=== PATIENT | male | born 1965 | race Caucasian/White ===

== ENCOUNTER 2017-08-03 05:24 | Day surgery (SDC) | payer OTHER ==
[~2017-08-03] VITALS: Ht 185.4 cm; Wt 108.0 kg
--- NOTE | ~2017-08-03 | EKG ---
[address] [address] ELECTROCARDIOGRAM REPORT Name: CARLOS ROBIN Room #: 150-3 [facility]#: [id number] Admission: 08/03/17 Attend Phys: Gregorio Osullivan MD Discharge: Date of : 63 Report #: [id number] THIS REPORT FOR: //name// [facility] Test Date: 2017-08-03 Test Time: 06:39:02 Pat Name: CARLOS ROBIN Department: Room: 150 3 Gender: M Guide Visitor: RAMA : 1965 Requested By: Gregorio Osullivan Order Number: [id number] MD: Preston Bran Measurements Intervals [place] Rate: 55 P: 34 MA: 166 QRS: 0 QRSD: 109 T: -13 QT: 431 QTc: 413 Interpretive Statements Sinus bradycardia Voltage criteria for left ventricular hypertrophy No previous ECG available for comparison Electronically Signed On 08-03-2017 8:44:14 BICYCLE SERVICE TECHNICIAN by Preston Bran [email or web address] <ELECTRONICALLY SIGNED> By: Preston Bran MD, [facility] 08/03/17 0844 0639 0639 Preston Bran MD, FACC /EPI
--- NOTE | ~2017-08-03 | O ---
[facility] [place] [address] OPERATIVE REPORT Name: CARLOS ROBIN Room #: DEP [facility].#: [id number] Admission: 08/03/17 Attend Phys: Gregorio Osullivan MD Discharge: 08/03/17 Date of : 63 Report #: [id number] THIS REPORT FOR: //name// CC: FAM unknown Gregorio Osullivan DATE OF SERVICE: 08/03/2017 PREOPERATIVE DIAGNOSIS: Deviated nasal septum, turbinate hypertrophy, sleep apnea. POSTOPERATIVE DIAGNOSIS: Deviated nasal septum, turbinate hypertrophy, sleep apnea. PROCEDURE: Nasal septoplasty, submucous resection of inferior turbinates with outfracturing. SURGEON: Gregorio Osullivan MD ANESTHESIA: General, LMA. INDICATIONS: See H and P. FINDINGS: Severely deviated quadrangular cartilage bowed and deviated towards the patient's left side. There was a large spur involving the vomer, which was impacted against the left inferior turbinate. TECHNIQUE: After obtaining consent, he was brought to the operating suite, appropriate time out was performed. General LMA anesthesia was obtained. The bed was turned 90 degrees. Nose was prepped and draped in the usual sterile fashion, 8 mL of 1% Xylocaine, 1:100,000 epinephrine was injected on each side of the nasal septum. Later in the case, an additional mL was injected submucosally in each inferior turbinate. Care was made not to inject intravascularly. A right-sided hemitransfixion incision was performed with elevation of the mucosal flap on the left side exposing the entire length of the quadrangular cartilage in the anterior vomer and perpendicular plate on the left side. Due to substantial deviation, I harvested a large almost square piece of quadrangular cartilage leaving enough superiorly and caudally for tip support. The bony cartilaginous junction superiorly was disarticulated. I elevated mucosal flaps on both the right and left sides of the vomer and perpendicular plate. The spurring was taken care of in a piecemeal fashion using combination of Riki-Juanjo punches, scissors and Tamiko forceps. I then returned anteriorly where I continued deviation off the maxillary crest, which had a rather prominent deviation to the left and incorporated a small vomer spur. [address] [address] OPERATIVE REPORT Name: CARLOS ROBIN Room #: DEP [facility] M.R.#: [id number] Admission: 08/03/17 Attend Phys: Gregorio Osullivan MD Discharge: 08/03/17 Date of : 63 Report #: [id number] This was taken down with a combination of Riki-Juanjo scissors and Tamiko's. Upon removal, there was noted to be two rents in the mucosal flaps, one posterior inferiorly on the left and one anteriorly inferiorly on the right. These were not adjacent to each other. Having addressed the septal deviation, previously harvested cartilage that was found to be relatively straight was trimmed, morcellized and placed back between the septal folds. The hemitransfixion incision was closed with 4-0 chromic suture. Simple splints were designed and fashioned by myself, placed in each side of the septum and secured with 3-0 Prolene. Prior to securing these, I made sure the mucosal flaps were unfurled. Each inferior turbinate was medialized with a Gladstone elevator. The above local anesthetic was infiltrated. A small incision was made in the anterior, inferior portion of the turbinate with the [place] blade. Submucous dissection on the medial-medial, inferior surface was done with a caudal elevator. Submucous removal was then performed with the [employer] handpiece with the turbinate blade at 5000 RPM to effect. Each inferior turbinate was then outfractured with the Gladstone elevator. Merogel was trifolded and placed between the septum and the inferior turbinates to avoid any synechia formations and help keep the mucosal flaps juxtaposed to the septum. Nasopharynx was suctioned free of secretions and taken to the recovery room in stable condition. ESTIMATED BLOOD LOSS: 25 mL. <ELECTRONICALLY SIGNED> By: Gregorio Osullivan MD 08/11/17 0731 0840 0918 Gregorio Osullivan MD /nt
--- NOTE | ~2017-08-03 | H ---
[facility] [place] [address] HISTORY AND PHYSICAL Name: CARLOS ROBIN Room #: DEP [facility] M..#: [id number] Admission: 08/03/17 Attend Phys: Gregorio Osullivan MD Discharge: 08/03/17 Date of : 63 Report #: [id number] THIS REPORT FOR: //name// CC: FAM unknown Gregorio Osullivan CHIEF COMPLAINT: Nasal airway obstruction. HISTORY OF PRESENT ILLNESS: The patient had a 6-month history of bilateral nasal congestion and obstruction, worse on the left side with a long history of sleep apnea, unable to tolerate the CPAP well. He presented for possible surgical intervention. Examination demonstrated a rather severe left-sided septal deviation impinging the left middle meatus by 90% along with severe cartilage angulation, turbinates swollen with right greater than left hypertrophy. Given the findings of nasal airway obstruction due to worsening turbinate swelling and deviated septum, he discussed both surgical and medical treatments and given the fact he did not do well with nasal steroid sprays, he is motivated to proceed with surgery. Surgical risks and benefits were outlined in the patient's office chart and he agreed to proceed forward at this time. ALLERGIES TO MEDICATION: PENICILLIN. MEDICATIONS ON ADMISSION: Lisinopril 20 mg once a day. PAST MEDICAL AND SURGICAL HISTORY: Notable for adenotonsillectomy, extraction of wisdom teeth, history of hypertension, arthritis, allergic rhinitis, sleep apnea and tinnitus. REVIEW OF SYSTEMS: Notable otherwise for no other GI, , cardiovascular or pulmonary issues. PHYSICAL EXAMINATION: GENERAL: Gentleman appears his stated age. VITAL SIGNS: Height is 6 feet, weight 235 pounds. HEENT: As described above. Oral cavity and pharynx with surgically absent tonsils. NECK: Normal. CHEST: Clear. CARDIOVASCULAR: Regular rate and rhythm. ASSESSMENT: 1. History of deviated septum. 2. Turbinate hypertrophy. [facility] [address] [place] [address] HISTORY AND PHYSICAL Name: CARLOS ROBIN Room #: DEP [facility]#: [id number] Admission: 08/03/17 Attend Phys: Gregorio Osullivan MD Discharge: 08/03/17 Date of : 63 Report #: [id number] PLAN: Will be for surgical intervention. <ELECTRONICALLY SIGNED> By: Gregorio Osullivan MD 10/06/17 0730 1207 1235 Gregorio Osullivan MD /nt
[~2017-08-03 05:24] MED LIST: LISINOPRIL20 MG PO
[2017-08-03 05:32] VITALS: BP 121/76
[2017-08-03 08:54] VITALS: BP 121/76
== END 2017-08-03 09:40 | disposition home or self-care (01) ==
LOC: TBA 05:24 → OR 05:24
DX: J34.2 Deviated nasal septum (principal); J34.3 Hypertrophy of nasal turbinates; I10 Essential (primary) hypertension; G47.33 Obstructive sleep apnea (adult) (pediatric); Z88.0 Allergy status to penicillin; Z79.899 Other long term (current) drug therapy; Z98.890 Other specified postprocedural states
CPT/HCPCS: 50010; 50101; 50386; 50398; 51316; 51634; 53635; 56526; 56528; 62110; 62900; 70005